=== PATIENT | female | born 1985 | race African-American/Black ===

== ENCOUNTER 2021-08-07 20:03 | Emergency (ER) | payer BC ==
[~2021-08-07] VITALS: Ht 175.3 cm; Wt 59.0 kg
[2021-08-07 20:15] VITALS: BP_SYST 116
[2021-08-07] MEDS ORDERED: IBUPROFEN 600 MG TABLET PO ONE (20:45)
[2021-08-07] MEDS ORDERED: LORATADINE 10 MG TABLET PO ONE (20:45)
[2021-08-07] MEDS ORDERED: IBUP-1969 PO (21:00)
[2021-08-07] MEDS ORDERED: LORA10TA7 PO (21:00)
[2021-08-07] MEDS ORDERED: FLUT16SP16 NS (21:00)
[2021-08-07 21:12] VITALS: BP_SYST 116
== END 2021-08-07 21:12 | disposition home or self-care (01) ==
LOC: SED 20:03
DX: J01.90 Acute sinusitis, unspecified (principal); Z79.899 Other long term (current) drug therapy
CPT/HCPCS: 99283